=== PATIENT | male | born 1950 | race Caucasian/White ===

== ENCOUNTER 2022-01-03 08:21 | Inpatient (IN) ==
--- NOTE | 2021-12-17 14:07 | PAT Medication Instructions ---
Medication Instructions Date of Service December 17, 2021 Home Medications ascorbic acid (vitamin C) 1,000 mg tablet (Vitamin C) 1 g PO QAM cholecalciferol (vitamin D3) 25 mcg (1,000 unit) chewable tablet (Vitamin D3) 25 mcg PO QAM docusate sodium 100 mg tablet (Stool Softener) 100 mg PO BID ezetimibe 10 mg tablet 10 mg PO QPM finasteride 5 mg tablet 5 mg PO QPM garlic 300 mg PO QPM losartan 50 mg tablet 50 mg PO QAM meloxicam 15 mg tablet 15 mg PO QAM multivitamin 1 tab PO QAM pantoprazole 40 mg tablet,delayed release 40 mg PO QPM pravastatin 40 mg tablet 40 mg PO HS saw palmetto 80 mg capsule 160 mg PO QAM vitamin B complex 1 tab PO QPM zinc 1 tab PO QPM ASK your surgeon for instructions meloxicam 15 mg tablet 15 mg PO QAM STOP taking 2 weeks before surgery garlic 300 mg PO QPM saw palmetto 80 mg capsule 160 mg PO QAM vitamin B complex 1 tab PO QPM zinc 1 tab PO QPM DO NOT take the morning of surgery ascorbic acid (vitamin C) 1,000 mg tablet (Vitamin C) 1 g PO QAM cholecalciferol (vitamin D3) 25 mcg (1,000 unit) chewable tablet (Vitamin D3) 25 mcg PO QAM docusate sodium 100 mg tablet (Stool Softener) 100 mg PO BID losartan 50 mg tablet 50 mg PO QAM multivitamin 1 tab PO QAM Take evening before surgery docusate sodium 100 mg tablet (Stool Softener) 100 mg PO BID ezetimibe 10 mg tablet 10 mg PO QPM finasteride 5 mg tablet 5 mg PO QPM pantoprazole 40 mg tablet,delayed release 40 mg PO QPM pravastatin 40 mg tablet 40 mg PO HS Other Notes NOTHING TO EAT OR DRINK AFTER MIDNIGHT. If you have any questions please call us at [phone] or [phone] or [phone] or [phone]
--- NOTE | 2021-12-20 11:21 | Anesthesiology Consultation ---
Date of Service December 20, 2021 Assessment & Plan (1) Encounter for pre-operative examination: COVID screening: Per assessment on 12/17: Travel screen negative. Patient's girlfriend (in same household) had positive Covid home test 12/06/21. Patient had headache/cough which subsided 12/13. No current symptoms. Patient had Covid test done 12/20/21 ([place]) was positive. Pt can proceed as scheduled without additional preop Covid testing or additional Covid contact precautions per 90 days protocol. Chart Review Chart Review: Acceptable Risk for Surgery and Patient seen in Pre Admission Testing Teaching & Discussion Pre-Anesthesia Teaching/Discussion Notes: Instructed NPO after midnight before surgery,except medications with 15 cc of water. Medication instructions provided according to the PAT guidelines. History Surgery Operation Date: 01/03/22 10:05 Proposed Procedures p L3-S1 Decompression and Fusion Spinal Cord Monitoring - Otilio Baird, Height/Weight Height: 5 ft 10 in Weight: 97.1 kg Allergies Allergy/AdvReac Type Severity Reaction Status Date / Time Sulfa (Sulfonamide Allergy Intermediate Rash Verified 12/17/21 12:53 Antibiotics) Medications Home Medications Medication Instructions Recorded Confirmed Last Taken ascorbic acid (vitamin C) 1,000 mg 1 g PO QAM 12/17/21 12/17/21 Unknown tablet (Vitamin C) cholecalciferol (vitamin D3) 25 25 mcg PO QAM 12/17/21 12/17/21 Unknown mcg (1,000 unit) chewable tablet (Vitamin D3) docusate sodium 100 mg tablet 100 mg PO BID 12/17/21 12/17/21 Unknown (Stool Softener) ezetimibe 10 mg tablet 10 mg PO QPM 12/17/21 12/17/21 Unknown finasteride 5 mg tablet 5 mg PO QPM 12/17/21 12/17/21 Unknown garlic 300 mg PO QPM 12/17/21 12/17/21 Unknown losartan 50 mg tablet 50 mg PO QAM 12/17/21 12/17/21 Unknown meloxicam 15 mg tablet 15 mg PO QAM 12/17/21 12/17/21 Unknown multivitamin 1 tab PO QAM 12/17/21 12/17/21 Unknown pantoprazole 40 mg tablet,delayed 40 mg PO QPM 12/17/21 12/17/21 Unknown release pravastatin 40 mg tablet 40 mg PO HS 12/17/21 12/17/21 Unknown saw palmetto 80 mg capsule 160 mg PO QAM 12/17/21 12/17/21 Unknown vitamin B complex 1 tab PO QPM 12/17/21 12/17/21 Unknown zinc 1 tab PO QPM 12/17/21 12/17/21 Unknown Past Medical History Medical History BPH (benign prostatic hyperplasia) GERD (gastroesophageal reflux disease) History of COVID-19 Hx of malignant skin melanoma s/p excision Hyperlipidemia Hypertension Exercise / Class Metabolic Activity II 4-5 Yardwork/Stairs/Walk up hill (one FS (no CP, no SOB)) Past Family History Family History Other No family history of adverse response to anesthesia Past Surgical History Surgical History Hx of cataract extraction B/L Hx of colonoscopy Hx of melanoma excision back Past Anesthesia History No Hx of Anesthesia Complications and No Family Hx of Anesthesia Complications History of PONV No Hx of PONV and No Hx of Motion Sickness Social History Smoking Status: Never smoker Do You Dip or Chew Tobacco: No Hx Alcohol Use: Yes Alcohol type: hard liquor alcohol intake frequency: 3 or more drinks per day (2-3 vodka/tonic per night) Hx Substance Use: No substance use type: does not use Review of Systems Patient denies chest pain, shortness of breath, dyspnea on exertion, fever, chills, cough, wheezing, palpitations. Physical Exam Vital Signs VITALS BP 147/89 P 67 TEMP 98.2 SP02 97%RA RESP 16 PHYSICAL Full cervical extension range of motion. Full TMJ range of motion. TMD 3 finger breaths Mallampati Score 1 Dentition: intact, + crown Lungs: clear throughout to auscultation Cardiac: regular rate and rhythm, no murmurs noted Spine: normal Carotid arteries: negative bruit Extremities: no edema Lab Results Anesthesia Preop Results Results Anesthesia Widget: WBC 5.69 K/ul (4.8-10.8) 12/20/21 Hgb 12.8 g/dl (14.0-18.0) L 12/20/21 Hct 37.0 % (40.1-51.0) L 12/20/21 Plt 207 K/uL (130-400) 12/20/21 Na 139 mmol/L (136-145) 12/20/21 K 4.8 mmol/L (3.5-5.1) 12/20/21 Cl 105 mmol/L (98-107) 12/20/21 CO2 27 mmol/L (21-32) 12/20/21 BUN 20 mg/dl (6-23) 12/20/21 Creat 1.21 mg/dl (0.6-1.4) 12/20/21 Glucose Level 104 mg/dl (70-99(Fasting)) H 12/20/21 PT 10.7 Seconds (9.0-12.0) 12/20/21 PTT 25.9 Seconds (21.0-31.0) 12/20/21 INR 1.0 (0.9-1.1) 12/20/21 Urine Color Yellow 12/20/21 Urine Appearance Clear (Clear) 12/20/21 Urine pH 6.0 (4.5-7.5) 12/20/21 Urine Specific [place] 1.008 (1.000-1.030) 12/20/21 Urine Protein Negative (Negative) 12/20/21 Urine Glucose (UA) Negative (Negative) 12/20/21 Urine Ketones Negative (Negative) 12/20/21 Urine Blood Negative (Negative) 12/20/21 Urine Nitrite Negative (Negative) 12/20/21 Urine Bilirubin Negative (Negative) 12/20/21 Urine Urobilinogen Negative (Negative) 12/20/21 Urine Leukocyte Esterase Negative (Negative) 12/20/21 Blood Type A Positive 12/20/21 Antibody Screen NEGATIVE 12/20/21 Testing Electrocardiogram Date: 12/20/21 Findings: + NSR @ (62) Chest X-Ray Date: 11/26/21 Findings: + NAD
[~2022-01-03 08:21] MED LIST: ACETAMINOPHEN 500 MG TAB PO SCH; ALBUMIN HUMAN 5% 12.5 GM/250 ML VIAL IV ONE; GABAPENTIN 300 MG CAP PO SCH; LR 15ML/HR IV SCH; ceFAZolin 2000MG 2,000 MG/15 ML SYR IV SCH
[2022-01-03] MEDS ORDERED: MEPERIDINE HCL 25 MG/ML CARP/VIAL IV PRN (08:54)
[2022-01-03] MEDS ORDERED: ONDANSETRON INJ 2 MG/ML 2 ML VIAL IV PRN ×2 (08:54→15:26)
[2022-01-03] MEDS ORDERED: fentaNYL citrate 100 MCG/2 ML VIAL IV PRN (08:54)
[2022-01-03] MEDS ORDERED: HYDROmorphone INJ 1 MG/ML SYRINGE IV PRN ×2 (08:54→15:26)
[2022-01-03] MEDS ORDERED: ATROPINE SULFATE 0.1 MG/ML 10ML SYR IV PRN (08:54)
[2022-01-03] MEDS ORDERED: LABETALOL HCL IV 5 MG/ML 20ML IV PRN (08:54)
[2022-01-03] MEDS ORDERED: ePHEDrine sulfate 50 MG/ML AMP IV PRN (08:54)
[2022-01-03] MEDS ORDERED: PHENYLEPHRINE 100MCG/ML 5ML SYR IV PRN (08:54)
--- NOTE | 2022-01-03 09:31 | History & Physical Bridge Note ---
Date of Service January 03, 2022 History & Physical Bridge Note I have examined the patient, reviewed the History & Physical and in the interval since the performance of the History & Physical I have noted the following changes of clinical significance: no changes noted
--- NOTE | 2022-01-03 09:31 | History & Physical Report ---
Date of Service January 03, 2022 Assessment & Plan (1) Neurogenic claudication due to lumbar spinal stenosis: Plan: L3-S1 decompression and fusion History of Present Illness Chief Complaint: Back and bilateral leg pain Primary Care Provider: Matthew Walker This is a 71-year-old male presents with chronic persistent back and bilateral leg pain. After failing extensive course of nonoperative care is here for surgical invention. Allergies Allergy/AdvReac Type Severity Reaction Status Date / Time Sulfa (Sulfonamide Allergy Intermediate Rash Verified 01/03/22 09:01 Antibiotics) Home Medications Medication Instructions Recorded Confirmed Type ascorbic acid (vitamin C) 1,000 mg 1 g PO QAM 12/17/21 01/03/22 History tablet (Vitamin C) cholecalciferol (vitamin D3) 25 25 mcg PO QAM 12/17/21 01/03/22 History mcg (1,000 unit) chewable tablet (Vitamin D3) docusate sodium 100 mg tablet 100 mg PO BID 12/17/21 01/03/22 History (Stool Softener) ezetimibe 10 mg tablet (Zetia) 10 mg PO QPM 12/17/21 01/03/22 History finasteride 5 mg tablet 5 mg PO QPM 12/17/21 01/03/22 History garlic 300 mg PO QPM 12/17/21 01/03/22 History losartan 50 mg tablet 50 mg PO QAM 12/17/21 01/03/22 History meloxicam 15 mg tablet 15 mg PO QAM 12/17/21 01/03/22 History multivitamin 1 tab PO QAM 12/17/21 01/03/22 History pantoprazole 40 mg tablet,delayed 40 mg PO QPM 12/17/21 01/03/22 History release pravastatin 40 mg tablet 40 mg PO HS 12/17/21 01/03/22 History saw palmetto 80 mg capsule 160 mg PO QAM 12/17/21 01/03/22 History vitamin B complex 1 tab PO QPM 12/17/21 01/03/22 History zinc 1 tab PO QPM 12/17/21 01/03/22 History Past Med/Surg History Medical History (Updated 01/03/22 @ 09:31 by Otilio Baird DO) Anemia BPH (benign prostatic hyperplasia) GERD (gastroesophageal reflux disease) History of COVID-19 Hx of malignant skin melanoma s/p excision Hyperlipidemia Hypertension Surgical History Hx of cataract extraction B/L Hx of colonoscopy Hx of melanoma excision back Family History Other No family history of adverse response to anesthesia Social History Smoking Status: Never smoker Second Hand Exposure: No; Do You Dip or Chew Tobacco: No; Tobacco Cessation Education Requested by Patient: No Hx Alcohol Use: Yes Alcohol type: hard liquor Hx Substance Use: No Preferred Language: Luxembourgish Communication Ability: Effective Shearing Shed Hand Required: No Beliefs That Will Affect Care: None Current Living Situation: Significant Other Other Information That Helps Us Care for You: No Feels Safe at Home: Yes Safety Concerns: Feels Safe At This Time Assistive Devices: None Physical Exam Physical Exam: Patient is alert and oriented Heart regular rhythm Lungs clear Results & Data Results & Data ([facility]) Vital Signs (Past 12 Hours) Vital Signs Temp Pulse Resp BP Pulse Ox O2 Del Method 01/03/22 08:59 36.6 C 72 18 170/87 H 97 Room Air
[2022-01-03] MEDS ORDERED: BUPIVACAINE/EPINEPHRINE 0.25% 1:200,000 30 ML VIAL ONE (09:48)
[2022-01-03] MEDS ORDERED: ceFAZolin 330 MG/ML 1 GM VIAL ONE (09:48)
[2022-01-03] MEDS ORDERED: HYDROmorphone INJ 2 MG/ML SYR/VIAL ONE ×2 (09:52→12:55)
[2022-01-03] MEDS ORDERED: DEXAMETHASONE SOD INJ 4 MG/ML VIAL ONE (09:52)
[2022-01-03] MEDS ORDERED: LIDOCAINE 2% MPF LOCAL 5 ML VIAL INFIL ONE (09:52)
[2022-01-03] MEDS ORDERED: PROPOFOL IV EMULSION 10 MG/ML 20 ML VIAL IV ONE (09:52)
[2022-01-03] MEDS ORDERED: NEOSTIGMINE METHYLSULFATE 1 MG/ML 10ML VIAL ONE (09:52)
[2022-01-03] MEDS ORDERED: MIDAZOLAM HCL 1 MG/ML 2ML VIAL ONE (09:52)
[2022-01-03] MEDS ORDERED: GLYCOPYRROLATE 0.2 MG/ML VIAL ONE (09:52)
[2022-01-03] MEDS ORDERED: ROCURONIUM BROMIDE 10 MG/ML 5 ML VIAL IV ONE ×6 (09:52→10:42)
[2022-01-03] MEDS ORDERED: ONDANSETRON INJ 2 MG/ML 2 ML VIAL ONE (09:52)
[2022-01-03] MEDS ORDERED: FLOSEAL HEMOSTATIC MATRIX 10ML TOP ONE (10:47)
--- NOTE | 2022-01-03 13:17 | Operative Report ---
Post Operative Report Pre & Post Diagnosis Operation Date: 01/03/22 10:05 Pre-Op Diagnosis: Neurogenic Claudication due to Lumbar Spinal Stenosis Lumbar spondylolisthesis Post-Op Diagnosis: Same I identified the patient and participated in the time-out.: Yes Procedure Operation Date: 01/03/22 10:05 Actual Procedures #1 lumbar decompression with bilateral medial facetectomies and foraminotomies L2-L3, L3-L4, L4-5 and L5-S1. #2 posterior spinal fusion L3-L4, L4-5 and L5-S1. #3 placement posterior segmental instrumentation L3-S1. #4 interbody fusion L3-L4, L4-5 and L5-S1. #5 placement of Spira 13 x 26 mm cage at L3-L4, 13 x 26 mm cage at L4-L5 and a 14 x 26 mm cage L5-S1. #6 placement locally harvested morselized autograft in the posterior gutters. #7 placement of I factor combined with V toss in the interbody space and posterior gutters. Surgeon Otilio Baird, DO [employer] Jefe Martin Estimated Blood Loss 1,000 Findings See Below Patient is 5 foot 10 weighing over 96 kg with a BMI in excess of 38. This combined with an EBL of greater than 1000 cc created significant technical difficulty and at least 50% increased operative time. Specimens None Indications This is a 71-year-old male who presents above-mentioned diagnosis after failing course of nonoperative care is here for the above-mentioned procedure. Description of Procedure Patient was met with identified informed consent obtained. Patient was then taken to the operative suite underwent a patient placed in a prone position the [place] table top Gustavo frame. All bony prominences well-padded eyes inspected to ensure no external pressure response. This point lumbar spine was prepped and draped in a sterile fashion. Sharp dissection with the assistance of Bovie cautery was performed down to and exposing the lamina and transverse processes of L2 L3-L4-L5 and the sacral ala bilaterally. From caudal to cephalad fashion complete laminectomy of L5 L4 L3 and partial laminectomy of L2 was performed including bilateral medial facetectomies and foraminotomies addressing severe spinal stenosis. Obvious bilateral pars defect noted at L5. After complete decompression pedicle screws were placed in L3-L4-L5 and S1 levels bilaterally with assistance of fluoroscopy and properly sized saul contoured and placed. By way of a transforaminal portion left complete discectomy of L5-S1 was performed endplates curetted to subcortical bleeding bone and a 14 x 26 mm spiral cage with I factor tapped in position. Then proceeded to L4-L5 and again by way of a transforaminal approach on the left complete discectomy performed endplates curetted to subcortically bone and a 13 x 26 mm spiral cage with I factor tapped in position. Lastly proceeded L3-L4 and again by way of a transforaminal epidural left complete discectomy was performed endplates curetted to subcorti lizabeth bone and a 13 x 26 mm spiral cage filled with I factor tapped in position. The rods were then compressed locked in final position bilaterally. The transverse processes of L3-L4-L5 and sacral ala burred to subcortically bone. I factor combined with V toss and locally harvested morselized autograft was placed in the posterior gutters. 15 round FERMIN drain inserted. The incision was then closed with 1 Vicryl the fascia 2-0 Vicryl subcutaneously and 4 Monocryl for final skin closure. Steri-Strip sterile dressings placed. Patient will continue PACU stable condition. Please note spinal cord monitoring was last at the procedure no changes noted. Lastly Jefe Martin was present at the entire surgery and while the patient positioning complex portions of the surgery and fascial closure. I attest to the content of the Intraoperative Record and any orders documented therein. Any exceptions are noted below.
--- NOTE | 2022-01-03 14:12 | Fluoroscopy Report ---
FL lumbar spine 2-3V CLINICAL HISTORY: L3-S1 DFI COMPARISON STUDY: None. FLUOROSCOPY TIME: 39 seconds. FLUOROSCOPIC IMAGES: 2 FINDINGS: Fluoroscopy was provided during L3-L4, L4-L5 and L5-S1 discectomies with interbody spacer p lacement. Posterior decompression is noted with bilateral pedicle screws at the L3, L4, L5 and S1 lev els with interconnecting rods. Hardware is intact. No unexpected radiopaque foreign bodies. IMPRESSION: Fluoroscopy provided during L3-S1 discectomies, posterior decompression and pedicle scre w fusion. ACT 112: Negative or not required by law. Electronically signed by: Elijah Reyes M.D. 01/03/2022 2:10 PM
--- NOTE | 2022-01-03 14:51 | Anesthesiology Progress Note ---
Date of Service January 03, 2022 Anesthesia Post Procedure Vital Signs Vital Signs: Temp Pulse Resp BP Pulse Ox O2 Del Method O2 Flow Rate 01/03/22 14:45 82 14 120/74 98 Oxymask 3 01/03/22 14:35 36.5 C 82 14 124/75 98 Oxymask 3 01/03/22 14:25 79 14 117/67 98 Oxymask 3 01/03/22 14:15 78 14 123/67 98 Oxymask 3 01/03/22 14:05 77 14 122/68 98 Oxymask 3 01/03/22 13:55 78 14 116/67 99 Oxymask 5 01/03/22 13:45 78 14 108/69 99 Oxymask 5 01/03/22 13:36 36.2 C L 79 10 L 136/71 99 Oxymask 10 01/03/22 08:59 36.6 C 72 18 170/87 H 97 Room Air Pain Intensity Lower Back: Pain Intensity: 0 Transfer of Care Handoff Completed per policy Notes Mental Status: alert / awake / arousable Patient Amnestic to Procedure: Yes Nausea / Vomiting: adequately controlled Pain: adequately controlled Airway Patency, RR, SpO2: stable & adequate BP & HR: stable & adequate Hydration State: stable & adequate Anesthetic Complications: no major complications apparent and Pt Satisfied with anesthetic care
[2022-01-03] MEDS ORDERED: LORazepam 0.5 MG TAB PO PRN (15:26)
[2022-01-03] MEDS ORDERED: SOD PHOSPHATE/SOD BIPHOSPHATE ENEMA 132 ML BTL PR PRN (15:26)
[2022-01-03] MEDS ORDERED: ACETAMINOPHEN 1,000 MG/100 ML VIAL IV PRN (15:26)
[2022-01-03] MEDS ORDERED: bisacodyL 10 MG SUPP PR PRN (15:26)
[2022-01-03] MEDS ORDERED: NALOXONE HCL 0.4 MG/1 ML VIAL/CARP IV PRN (15:26)
[2022-01-03] MEDS ORDERED: METOCLOPRAMIDE HCL INJ 5 MG/ML 2 ML VIAL IV PRN (15:26)
[2022-01-03] MEDS ORDERED: ALUMINUM/MAGNESIUM SUSP 30 ML UDC PO PRN (15:26)
[2022-01-03] MEDS ORDERED: HYDROmorphone INJ 0.5 MG/0.5 ML SYR IV PRN (15:26)
[2022-01-03] MEDS ORDERED: LORazepam 0.5 MG in SYRINGE 0 ML IV PRN (15:26)
[2022-01-03] MEDS ORDERED: MAGNESIUM HYDROXIDE SUSP 30 ML UDC PO PRN (15:26)
[2022-01-03] MEDS ORDERED: PROMETHAZINE HCL 12.5 MG in SODIUM CHLORIDE 0.9% 50 ML IV PRN (15:26)
[2022-01-03] MEDS ORDERED: ONDANSETRON 4 MG OD TAB PO PRN (15:26)
[2022-01-03] MEDS ORDERED: ACETAMINOPHEN 500 MG TAB PO PRN (15:26)
[2022-01-03] MEDS ORDERED: FAMOTIDINE 20 MG TAB PO PRN (15:26)
[2022-01-03] MEDS ORDERED: diphenhydrAMINE Capsule 25 MG CAP PO PRN (15:26)
[2022-01-03] MEDS ORDERED: oxyCODONE HCL IR 5 MG TAB (IMMEDIATE RELEASE) PO PRN (15:26)
[2022-01-03] MEDS ORDERED: hydrOXYzine HCl 25 MG TAB PO PRN (15:26)
[2022-01-03] MEDS ORDERED: traMADol HCL 50 MG TABLET PO PRN (15:26)
[2022-01-03] MEDS: LACTATED RINGER'S 1,000 ML IV SCH ×2 (15:44→21:55)
[2022-01-03] MEDS ORDERED: SODIUM CHLORIDE 0.9% 250 ML IV PRN (15:47)
[2022-01-03 16:06] LABS: Hemoglobin 10.7 g/dl (14.0-18.0)
--- NOTE | 2022-01-03 16:22 | Consultation ---
Date of Consultation January 03, 2022 Assessment & Plan (1) Neurogenic claudication due to lumbar spinal stenosis: (2) S/P spinal surgery: Post op day# 0 S/P L3-S1 decompression and fusion by Dr Baird EBL#1000ml -pain management per ortho -wound management per ortho -PT/OT as appropriate -DVT prophylaxis per ortho -incentive spirometry -monitor H&H for acute blood loss anemia; pre-op Hgb: 12.8 (3) Anemia: Acute blood loss anemia, post-op Pre-op Hgb: 12.8 Had EBL#1000ml -Repeat H&H: Hgb: 10.7 -Monitor H&H, Type and cross PRBC's and hold (4) Hypertension: -Hold losartan and reassess tomorrow (5) Hyperlipidemia: -Continue pravastatin, ezetimibe (6) BPH (benign prostatic hyperplasia): -Continue finasteride (7) GERD (gastroesophageal reflux disease): -Continue PPI DVT Prophylaxis -SCDs Disposition per primary service Follows with Matthew Walker PA-C for routine care Pt was seen and care coordinated with Dr Gabriel. See addendum Thank you for this consultation. We will follow the patient with you during their hospital stay. You can reach a [facility] via [facility] Supervising Physician Co-Signing Physician Notes Pt seen and examined by me, care coordinated w/ Mariam Harden PA-C, pls refer to her note above for further detail. Pt is 71 y/o M w/ HTN, dyslipidemia, GERD, BPH, melanoma to back in 2007 s/p surg. removal, seen in medical consultation s/p L3-S1 decompression and fusion today by Dr Baird. Post op pt is feeling well, just little "groggy", reports pain controlled. Denies nausea, vomiting, CP, SOB. Has Espinosa catheter in place, draining clear yellow urine. Lungs are clear to auscultation, heart sounds regular. Abdomen soft, nontender nondistended, positive bowel sounds, obese. Patient moves lower extremities. Teds and SCDs applied. Surgical dressings on the back present. Pt w/ blood loss cca 1L per report. H&H repeat obtained - 10.7. BP 124/75- no need for blood transfusion at this time. Will continue to closely monitor. [place]. MULLER History of Present Illness Requesting Physician: Dr Baird Reason for Consultation: Post op medical management Attending Physician: Otilio Baird DO History of Present Illness Patient is 71 y/o M with PMH HTN, dyslipidemia, GERD, BPH, melanoma to back in 2007 seen in medical consultation s/p L3-S1 decompression and fusion today by Dr Baird. Post op reports pain controlled. Denies nausea, vomiting, CP, SOB. Has Espinosa catheter in place. Denies fever/chills, diaphoresis, MARTE, dizziness, vision changes, neck pain, palpitations, cough, sore throat, otalgia, rhinorrhea, abdominal pain, paresthesias, weakness, extremity edema, rashes, urinary symptoms. Allergies Allergy/AdvReac Type Severity Reaction Status Date / Time Sulfa (Sulfonamide Allergy Intermediate Rash Verified 01/03/22 09:01 Antibiotics) Home Medications Medication Instructions Recorded Confirmed Type ascorbic acid (vitamin C) 1,000 mg 1 g PO QAM 12/17/21 01/03/22 History tablet (Vitamin C) cholecalciferol (vitamin D3) 25 25 mcg PO QAM 12/17/21 01/03/22 History mcg (1,000 unit) chewable tablet (Vitamin D3) docusate sodium 100 mg tablet 100 mg PO BID 12/17/21 01/03/22 History (Stool Softener) ezetimibe 10 mg tablet (Zetia) 10 mg PO QPM 12/17/21 01/03/22 History finasteride 5 mg tablet 5 mg PO QPM 12/17/21 01/03/22 History garlic 300 mg PO QPM 12/17/21 01/03/22 History losartan 50 mg tablet 50 mg PO QAM 12/17/21 01/03/22 History meloxicam 15 mg tablet 15 mg PO QAM 12/17/21 01/03/22 History multivitamin 1 tab PO QAM 12/17/21 01/03/22 History pantoprazole 40 mg tablet,delayed 40 mg PO QPM 12/17/21 01/03/22 History release pravastatin 40 mg tablet 40 mg PO HS 12/17/21 01/03/22 History saw palmetto 80 mg capsule 160 mg PO QAM 12/17/21 01/03/22 History vitamin B complex 1 tab PO QPM 12/17/21 01/03/22 History zinc 1 tab PO QPM 12/17/21 01/03/22 History Patient History Medical History (Updated 01/03/22 @ 16:24 by Oliva Harden PA-C) Anemia BPH (benign prostatic hyperplasia) GERD (gastroesophageal reflux disease) History of COVID-19 Hx of malignant skin melanoma s/p excision Hyperlipidemia Hypertension Surgical History (Updated 01/03/22 @ 16:24 by Oliva Harden PA-C) Hx of cataract extraction B/L Hx of colonoscopy Hx of melanoma excision back Family History (Updated 01/03/22 @ 16:22 by Oliva Harden PA-C) Father Diabetes Lung cancer Mother Breast cancer Other No family history of adverse response to anesthesia Social History Smoking Status: Never smoker Second Hand Exposure: No; Do You Dip or Chew Tobacco: No; Tobacco Cessation Education Requested by Patient: No Hx Alcohol Use: Yes Alcohol type: hard liquor Hx Substance Use: No Preferred Language: Telugu Communication Ability: Effective Solution Strategist Required: No Beliefs That Will Affect Care: None Current Living Situation: Significant Other Other Information That Helps Us Care for You: No Feels Safe at Home: Yes Safety Concerns: Feels Safe At This Time Assistive Devices: None Review of Systems Review of Systems: All systems reviewed & are unremarkable except as noted in HPI & below Physical Exam Physical Exam: General: no distress, WDWN Head: normocephalic, atraumatic Eyes: conjunctiva non-injected, anicteric ENT: normal inspection external ears, nose, mucous membranes moist Neck: supple, trachea midline Lungs: clear, no respiratory distress, no wheezing/rhonchi/rales CV: RRR, no murmur, no pretibial edema Abd: normal BS, soft, non-tender Ext: no cyanosis, no calf tenderness; pedal pushes and pulls intact bilaterally, distal pulses intact, sensation to light touch intact Neuro: A&O x 3, no focal deficits noted, normal affect Skin: warm, dry Results & Data ([facility]) Vital Signs (Past 12 Hours) Vital Signs Temp Pulse Pulse Resp BP Pulse Ox O2 Del Method 01/03/22 15:45 37.4 C 85 14 109/72 93 Room Air 10/14/22 15:24 36.7 C 95 H 16 110/77 94 Room Air 01/03/22 15:00 81 14 126/76 97 Nasal Cannula 01/03/22 14:45 82 14 120/74 98 Nasal Cannula 01/03/22 14:35 36.5 C 82 14 124/75 98 Oxymask 01/03/22 14:25 79 14 117/67 98 Oxymask 01/03/22 14:15 78 14 123/67 98 Oxymask 01/03/22 14:05 77 14 122/68 98 Oxymask 01/03/22 13:55 78 14 116/67 99 Oxymask 01/03/22 13:45 78 14 108/69 99 Oxymask 01/03/22 13:36 36.2 C L 79 10 L 136/71 99 Oxymask 01/03/22 08:59 36.6 C 72 18 170/87 H 97 Room Air O2 Flow Rate 01/03/22 15:45 01/03/22 15:24 01/03/22 15:00 3 01/03/22 14:45 3 01/03/22 14:35 3 01/03/22 14:25 3 01/03/22 14:15 3 01/03/22 14:05 3 01/03/22 13:55 5 01/03/22 13:45 5 01/03/22 13:36 10 01/03/22 08:59 Laboratory Results Short CBC 01/03/22 Range/Units 15:58 Hgb 10.7 L (14.0-18.0) g/dl Hct 31.0 L (40.1-51.0) % Diagnostic Findings Lumbar Spine X-Ray 01/03/22 10:05 [place] lumbar spine 2-3V CLINICAL HISTORY: L3-S1 DFI COMPARISON STUDY: None. FLUOROSCOPY TIME: 39 seconds. FLUOROSCOPIC IMAGES: 2 FINDINGS: Fluoroscopy was provided during L3-L4, L4-L5 and L5-S1 discectomies with interbody spacer placement. Posterior decompression is noted with bilateral pedicle screws at the L3, L4, L5 and S1 levels with interconnecting rods. Hardware is intact. No unexpected radiopaque foreign bodies. IMPRESSION: Fluoroscopy provided during L3-S1 discectomies, posterior decompression and pedicle screw fusion. ACT 112: Negative or not required by law. Electronically signed by: Elijah Reyes M.D. 01/03/2022 2:10 PM
[2022-01-03] MEDS: ceFAZolin 2000MG 2,000 MG/15 ML SYR IV SCH (18:13)
[2022-01-03] MEDS: DOCUSATE SODIUM/SENNA 50/8.6MG TAB PO SCH (19:54)
[2022-01-03] MEDS: EZETIMIBE 10 MG TABLET PO SCH (19:55)
[2022-01-03] MEDS: FINASTERIDE 5 MG TAB PO SCH (19:56)
[2022-01-03] MEDS: PRAVASTATIN SOD 40 MG TAB PO SCH (19:56)
[2022-01-03] MEDS: PANTOprazole 40 MG TAB PO SCH (19:56)
[2022-01-04] MEDS: ceFAZolin 2000MG 2,000 MG/15 ML SYR IV SCH (02:55)
[2022-01-04] MEDS: POLYETHYLENE (MIRALAX) 17 GM PACK PO SCH ×4 (05:52→20:31)
[2022-01-04 08:13] LABS: Basophils # (auto) 0.01 K/uL (0-0.2); Basophils % (auto) 0.1 %; Eosinophils # (auto) 0.01 K/uL (0-0.50); Eosinophils % (auto) 0.1 %; Hematocrit (blood only) 25.8 % (40.1-51.0); Hemoglobin 9.1 g/dl (14.0-18.0); Immature Granulocytes # (auto) 0.05 K/uL (0.00-0.02); Immature Granulocytes % (auto) 0.4 %; Lymphocytes # (auto) 2.29 K/uL (1.2-3.4); Lymphocytes % (auto) 18.9 %; Mean Corpuscular Hemoglobin 33.5 pg (25.0-34.0); Mean Corpuscular Hgb Conc 35.3 g/dL (32.0-36.0); Mean Corpuscular Volume 94.9 fL (80.0-100.0); Mean Platelet Volume 10.6 fL (9.4-12.4); Monocytes # (auto) 1.24 K/uL (0.24-0.82); Monocytes % (auto) 10.2 %; Neutrophils # (auto) 8.51 K/uL (1.4-6.5); Neutrophils % (auto) 70.3 %; Platelet Count 182 K/uL (130-400); RDW Coefficient of Variation 12.8 % (11.5-14.5); RDW Standard Deviation 44.1 fL (36.4-46.3); Red Blood Count 2.72 M/uL (4.63-6.08); White Blood Count 12.11 K/ul (4.8-10.8)
--- NOTE | 2022-01-04 08:15 | Orthopedic Progress Note ---
Date of Service January 04, 2022 Assessment & Plan (1) Neurogenic claudication due to lumbar spinal stenosis: Plan: At this time initiate physical therapy monitor FERMIN operatively discharge home in the next few days. Admission and Anticipated Discharge Date Admission Date: January 03, 2022 Subjective Back pain controlled leg pain improved Physical Exam Physical Exam: Patient is comfortable. Is constricted testing. Results & Data ([facility]) Vital Signs (Past 12 Hours) Vital Signs Temp Pulse Resp BP Pulse Ox O2 Del Method 01/04/22 07:15 37.4 C 80 14 145/63 H 93 Room Air 01/04/22 02:00 36.9 C 83 18 127/71 94 Room Air 01/03/22 22:04 37.2 C 90 20 137/67 95 Room Air
[2022-01-04 08:39] LABS: BUN Creatinine Ratio 14.5 (10-20); Calcium 9.3 mg/dl (8.5-10.1); Creatinine Clr Calc Pharmacy 69.6 ml/min; Est GFR (African American) 73.3 ml/min; Est GFR (Non-African American) 63.2 ml/min; Potassium 4.2 mmol/L (3.5-5.1)
[2022-01-04] MEDS ORDERED: LOSARTAN POTASSIUM 50 MG TAB PO SCH (09:00)
[2022-01-04] MEDS: MULTIVITAMIN TAB PO SCH (09:01)
[2022-01-04] MEDS: CHOLECALCIFEROL 1,000 UNITS 25 MCG TAB PO SCH (09:01)
[2022-01-04] MEDS: dexAMETHasone 6 MG in SYRINGE 0 ML IV SCH (09:01)
--- NOTE | 2022-01-04 11:11 | Hospitalist Progress Note ---
Date of Service January 04, 2022 Assessment & Plan (1) Neurogenic claudication due to lumbar spinal stenosis: (2) S/P spinal surgery: Plan: Post op day#1 S/P L3-S1 decompression and fusion by Dr Baird EBL#1000ml -pain management per ortho -wound management per ortho -PT/OT as appropriate -DVT prophylaxis per ortho -incentive spirometry -monitor H&H for acute blood loss anemia; pre-op Hgb: 12.8 (3) Anemia: Plan: Acute blood loss anemia, post-op Pre-op Hgb: 12.8 Had EBL#1000ml -Repeat H&H: Hgb: 9.1 -Monitor H&H, Type and cross PRBC's and hold (4) Hypertension: Plan: Losartan held post operatively. BP 145/73, will restart this now. (5) Hyperlipidemia: Plan: -Continue pravastatin, ezetimibe (6) BPH (benign prostatic hyperplasia): Plan: -Continue finasteride (7) GERD (gastroesophageal reflux disease): Plan: -Continue PPI DVT Prophylaxis -SCDs Disposition per primary service but cleared from a medical standpoint for discharge. Follows with Matthew Walker PA-C for routine care Thank you for this consultation. We will follow the patient with you during their hospital stay. You can reach a member of the [facility] Hospitalist Team 13/10 via [employer] Jacqueline Tamez DO [facility] and Anticipated Discharge Date Admission Date: January 03, 2022 Subjective 71-year-old man status post L3-S1 decompression and fusion by Dr. Baird on 01/03 He is ambulating with walker and doing well with this. Reports pain at his incision site which is expected. Has some chronic numbness in his feet which was present preoperatively. There are no changes with this. Overall doing well tolerating p.o. Review of Systems Review of Systems: All systems reviewed negative except as indicated above. Physical Exam Physical Exam: CONSTITUTIONAL: WNWD, vitals as above, generally well- appearing, NAD EYES: normal conjunctivae, no scleral icterus ENT: external ear and nose normal, MMM NECK: trachea midline RESPIRATORY: clear to auscultation bilaterally, no crackles, rales or wheezes, normal respiratory effort CARDIOVASCULAR: regular rate and rhythm, S1 and 2 heard without murmurs, gallops or rubs, no JVD, no peripheral edema CHEST: inspection of chest was normal GASTROINTESTINAL: soft, nontender, ND, no guarding MUSCULOSKELETAL: strength 5/5 throughout, head is normocephalic and atraumatic, neck supple, normal palpation of chest wall without tenderness SKIN: warm and dry NEUROLOGIC: CN 2-12 grossly intact, no sensory deficit, normal cognition, normal speech, no tremor PSYCHIATRIC: alert cooperative and oriented to person, place and time. Euthymic mood, makes good eye contact, language grossly intact, recent and remote memory grossly intact. Results & Data Results & Data ([facility]) Vital Signs (Past 12 Hours) Vital Signs Temp Pulse Resp BP Pulse Ox O2 Del Method 01/04/22 07:15 37.4 C 80 14 145/63 H 93 Room Air 01/04/22 02:00 36.9 C 83 18 127/71 94 Room Air Laboratory Results Short CBC 01/03/22 01/04/22 Range/Units 15:58 07:58 WBC 12.11 H (4.8-10.8) K/ul Hgb 10.7 L 9.1 L (14.0-18.0) g/dl Hct 31.0 L 25.8 L (40.1-51.0) % Plt Count 182 (130-400) K/uL BMP 01/04/22 07:58 Sodium 137 Potassium 4.2 Chloride 103 Carbon Dioxide 27 BUN 17 Creatinine 1.17 Glucose 121 H Calcium 9.3 Medications Administered Current Inpatient Medications Acetaminophen (Acetaminophen 500 Mg Tab) 1,000 mg PO Q8H PRN PRN Reason: MILD Pain Scale 1,2,3 & Pre PT Stop: 02/02/22 15:25 Al Hydrox/Mg Hydrox/Simethicone (Aluminum/Magnesium Susp 30 Ml Udc) 30 ml PO Q6H PRN PRN Reason: Dyspepsia Stop: 02/02/22 15:25 Bisacodyl (Bisacodyl 10 Mg Supp) 10 mg [place] DAILY PRN PRN Reason: Constipation Stop: 02/02/22 15:25 Diphenhydramine HCl (Diphenhydramine Capsule 25 Mg Cap) 25 mg PO Q6H PRN PRN Reason: Allergic Rhinitis/Insomnia Stop: 02/02/22 15:25 Ezetimibe (Ezetimibe 10 Mg Tablet) 10 mg PO QPM WADE Stop: 02/02/22 20:59 Last Admin: 01/03/22 19:55 Dose: 10 mg Famotidine (Famotidine 20 Mg Tab) 20 mg PO Q12H PRN PRN Reason: Dyspepsia Stop: 02/02/22 15:25 Finasteride (Finasteride 5 Mg Tab) 5 mg PO QPM WADE Stop: 02/02/22 20:59 Last Admin: 01/03/22 19:56 Dose: 5 mg Hydromorphone HCl (Hydromorphone Inj 0.5 Mg/0.5 Ml Syr) 0.5 mg IV Q3H PRN PRN Reason: MODERATE Pain (Scale 4,5,6) & Pre PT Stop: 01/17/22 15:25 Hydromorphone HCl (Hydromorphone Inj 1 Mg/Ml Syringe) 1 mg IV Q3H PRN PRN Reason: SEVERE Pain (Scale 7,8,9,10) Stop: 01/17/22 15:25 Hydroxyzine HCl (Hydroxyzine Hcl 25 Mg Tab) 25 mg PO Q8H PRN PRN Reason: Anxiety Stop: 02/02/22 15:25 Promethazine HCl 12.5 mg/ (Sodium Chloride) 50.5 mls @ 202 mls/hr IV Q6H PRN PRN Reason: Nausea &/or Vomiting Stop: 02/02/22 15:25 Acetaminophen (Ofirmev) 1,000 mg in 100 mls @ 400 mls/hr IV Q8H PRN PRN Reason: Pain Rating 1-3 & Pre PT Stop: 01/04/22 15:26 Lorazepam 0.5 mg/ Syringe 0.5 mls @ 2 mls/min IV Q8H PRN PRN Reason: Sedation/Anxiety Stop: 02/02/22 15:25 Dexamethasone 6 mg/ Syringe 1.5 mls @ 1 mls/min IV DAILY [facility] Stop: 01/06/22 09:02 Last Admin: 01/04/22 09:01 Dose: 1 mls/min Lorazepam (Lorazepam 0.5 Mg Tab) 0.5 mg PO Q8H PRN PRN Reason: Sedation/Anxiety Stop: 02/02/22 15:25 Losartan Potassium (Losartan Potassium 50 Mg Tab) 50 mg PO QAM [facility] Stop: 02/03/22 08:59 Magnesium Hydroxide (Magnesium Hydroxide Susp 30 Ml Udc) 30 ml PO Q24H PRN PRN Reason: Constipation Stop: 02/02/22 15:25 Metoclopramide HCl (Metoclopramide Hcl Inj 5 Mg/Ml 2 Ml Vial) 10 mg IV Q6H PRN PRN Reason: Nausea &/or Vomiting Stop: 02/02/22 15:25 Multivitamins (Multivitamin Tab) 1 tab PO QAM WADE Stop: 02/03/22 08:59 Last Admin: 01/04/22 09:01 Dose: 1 tab Naloxone HCl (Naloxone Hcl 0.4 Mg/1 Ml Vial/Carp) 0.1 mg IV Q5M PRN PRN Reason: Oversedation/Resp depression Stop: 02/02/22 15:25 Ondansetron HCl (Ondansetron Inj 2 Mg/Ml 2 Ml Vial) 4 mg IV Q6H PRN PRN Reason: Nausea &/or Vomiting Stop: 02/02/22 15:25 Ondansetron HCl (Ondansetron 4 Mg Od Tab) 4 mg PO Q6H PRN PRN Reason: Nausea Stop: 02/02/22 15:25 Oxycodone HCl (Oxycodone Hcl Ir 5 Mg Tab (Immediate Release)) 5 - 10 mg PO Q4H PRN PRN Reason: Pain & Pre PT Stop: 01/17/22 15:25 Pantoprazole Sodium (Pantoprazole 40 Mg Tab) 40 mg PO QPM WADE Stop: 02/02/22 20:59 Last Admin: 01/03/22 19:56 Dose: 40 mg Polyethylene Glycol (Polyethylene (Miralax) 17 Gm Pack) 17 gm PO Q6 WADE Stop: 02/03/22 05:59 Last Admin: 01/04/22 12:13 Dose: 17 gm Pravastatin Sodium (Pravastatin Sod 40 Mg Tab) 40 mg PO HS WADE Stop: 02/02/22 20:59 Last Admin: 01/03/22 19:56 Dose: 40 mg Senna/Docusate Sodium (Docusate Sodium/Senna 50/8.6mg Tab) 2 tab PO HS WADE Stop: 02/02/22 20:59 Last Admin: 01/03/22 19:54 Dose: 2 tab Sodium Biphosphate/Sodium Phosphate (Sod Phosphate/Sod Biphosphate Enema 132 Ml Btl) 132 ml [place] ONE PRN PRN Reason: Constipation Stop: 02/02/22 15:25 Tramadol HCl (Tramadol Hcl 50 Mg Tablet) 50 - 100 mg PO Q4H PRN PRN Reason: Moderate-Severe pain & Pre PT Stop: 02/02/22 15:25 Vitamin D (Cholecalciferol 1,000 Units 25 Mcg Tab) 1,[facility] Stop: 02/03/22 08:59 Last Admin: 01/04/22 09:01 Dose: 1,000 units
[2022-01-04] MEDS: LOSARTAN POTASSIUM 50 MG TAB PO SCH (13:32)
[2022-01-04] MEDS: DOCUSATE SODIUM/SENNA 50/8.6MG TAB PO SCH (19:19)
[2022-01-04] MEDS: EZETIMIBE 10 MG TABLET PO SCH (20:30)
[2022-01-04] MEDS: PANTOprazole 40 MG TAB PO SCH (20:30)
[2022-01-04] MEDS: FINASTERIDE 5 MG TAB PO SCH (20:30)
[2022-01-04] MEDS: PRAVASTATIN SOD 40 MG TAB PO SCH (20:30)
[2022-01-05] MEDS: POLYETHYLENE (MIRALAX) 17 GM PACK PO SCH (05:54)
[2022-01-05] MEDS: dexAMETHasone 6 MG in SYRINGE 0 ML IV SCH (08:05)
[2022-01-05] MEDS: LOSARTAN POTASSIUM 50 MG TAB PO SCH (08:05)
[2022-01-05] MEDS: MULTIVITAMIN TAB PO SCH (08:05)
[2022-01-05] MEDS: CHOLECALCIFEROL 1,000 UNITS 25 MCG TAB PO SCH (08:05)
--- NOTE | 2022-01-05 08:15 | Discharge Summary ---
Date of Service January 05, 2022 Admission HPI Per Admitting Provider This is a 71-year-old male presents with chronic persistent back and bilateral leg pain. After failing extensive course of nonoperative care is here for surgical invention. Admission Exam (Per Admitting) Constitutional average body habitus Eyes normal visual hensley by confrontation ENMT external ear and nose normal, oropharynx normal Neck normal visual inspection Respiratory normal respiratory effort Cardiovascular Extremities: normal capillary refill Gastrointestinal (Abdomen) Inspection/Auscultation: abdomen normal to inspection Musculoskeletal Extremities: extremities normal to inspection Skin normal turgor Neurologic normal touch/pain/proprioception and moves all extremities Psychiatric A+Ox3, euthymic affect Eye Contact: good eye contact Speech: normal rate/rhythm/volume of speech Discharge Data Consultations 01/03/22 15:26 Consult Hospitalist Routine Procedures Performed Operation Date: 01/03/22 10:05 Actual Procedures p L3-S1 Decompression and Fusion, Spinal Cord Monitoring(Not Applicable) - Otilio Baird DO Hospital Course (1) Neurogenic claudication due to lumbar spinal stenosis: sonia is being discharged home on postoperative day 2 status post L3-S1 decompression fusion. He has had an uneventful hospital course. He is made great progress in physical therapy. Pain is controlled. Passing flatus. Discharge Instructions ACTIVITY RECOMMENDATIONS: SELF CARE INSTRUCTIONS AFTER THORACIC/LUMBAR FUSIONS 1. You may walk to your tolerance. It is good exercise for your legs and back. Expect some back and intermittent leg aches and pains. 2. You may perform "counter-top" level activities (make a sandwich, chetan with a project, etc.). 3. No bending or lifting of more than 10 pounds or back twisting of any nature (roll like a log when turning in bed). 4. You may ride in a car for 20-30 minutes at a time. No driving until after your first visit with your doctor. 5. Frequent changes of position and restricting sitting to 30 minutes at a time will help limit the amount of back spasms and stiffness you may experience. 6. You may discontinue the use of ambulatory aids (cane, crutches, etc.) once your strength and confidence allow. 7. You may turkish line attendant the shower and let water strike your incision when you arrive home at least once daily. Do not take a tub bath, sit in a hot tub or go into a swimming pool until after your first recheck in the office. SPECIAL CARE INSTRUCTIONS: VERY IMPORTANT TO READ AND REVIEW A. Your surgical incision has been closed with a cosmetic suture under the skin that will dissolve in about 6 weeks. In 14 days, you can use a pair of clean scissors and cut the suture that is left outside of the skin at the ends of your incision. 1. The small skin tapes can be removed 7 days after surgery if they have not fallen off by that point. 2. You may keep the wound open to air as much as possible to promote healing after post-op day number 5 unless told otherwise by your doctor. 3. If you think the wound looks like it is becoming infected (redness or worsening drainage) and/or you are experiencing fever, chill or worsening back pain and muscle spasms, contact the office so that we may evaluate you as soon as possible. B. Complications are uncommon, but please contact us if you have any signs or symptoms of: 1. wound infection (fever higher than 102.5 degrees F, redness, separation of wound, drainage, or increasing pain from the incision) 2. blood clots in legs (pain, swelling, redness and warmth in legs) 3. urinary tract infection (fever higher than 102.5 degrees F, burning upon urination or increased frequency of urination) 4. nerve problems (inability to walk on your toes or heels, numbness, loss of bowel or bladder control) 5. any other symptoms that concern you C. Please call the office at if you have any concerns or questions about your operation or recovery. D. No smoking! Smoking drastically decreases the chance of a solid fusion. E. Do not take any anti-inflammatory medications (Indocin, Advil, Motrin, Aspirin, Naprosyn, etc.) as these may inhibit the chance of a solid fusion. Tylenol is okay to take for pain. MANAGING PAIN AFTER SPINAL SURGERY 1. Narcotic medication is intended for short-term use and will be provided for surgical pain. Surgical pain usually lasts for a period of 4-6 weeks. Narcotic medication includes Percocet, Vicodin, Darvocet, Tylenol #3 or Lortab. 2. Longer-term pain is more appropriately treated with non-narcotic medication such as Tylenol ES. 3. Muscle spasm is not appropriately treated with narcotics. Muscle relaxers such as Soma, Flexeril or Skelaxin can be used along with Tylenol ES. 4. Remember that we all live with some "aches and pains". This is not unusual or uncommon after an injury or as we get older. a. Back pain is expected and may include muscle spasms for 4 to 6 weeks after surgery. The pain should gradually improve. If the pain worsens for no apparent reason, please contact the office. b. Intermittent leg pain may also be experienced and should not be concerned about unless it worsens for no apparent reason. If so, please contact the office. 5. We will provide appropriate medication within the normal guidelines of their prescribed use. We will also be very cautious and aware of potential abuse and extended duration of patients' medication needs. a. Pain medications are for your comfort and to assist with sleep and rest so that the tissue can heal. They are not provided in order to return to normal activity and should not be used through the day. To do so or worsening pain at night can result from ongoing tissue damage and de velopment of tolerance to the prescribed medicine. 6. Please allow 2-3 days to process refills. Prescriptions will not be mailed but must be picked up at the office. FOLLOW UP VISIT: Keep your scheduled follow-up appointment. Any questions, please call the office at .
--- NOTE | 2022-01-05 11:44 | Hospitalist Progress Note ---
Date of Service January 05, 2022 Assessment & Plan (1) Neurogenic claudication due to lumbar spinal stenosis: (2) S/P spinal surgery: Plan: Post op day#2 S/P L3-S1 decompression and fusion by Dr Baird EBL#1000ml -pain management per ortho -wound management per ortho -PT/OT as appropriate -DVT prophylaxis per ortho -incentive spirometry -monitor H&H for acute blood loss anemia; pre-op Hgb: 12.8 (3) Anemia: Plan: Acute blood loss anemia, post-op Pre-op Hgb: 12.8 Had EBL#1000ml -Repeat H&H: Hgb: 9.1 -Monitor H&H, Type and cross PRBC's and hold (4) Hypertension: Plan: Losartan held post operatively. Restarted this yesterday and BP is at goal. (5) Hyperlipidemia: Plan: -Continue pravastatin, ezetimibe (6) BPH (benign prostatic hyperplasia): Plan: -Continue finasteride (7) GERD (gastroesophageal reflux disease): Plan: -Continue PPI DVT Prophylaxis -SCDs Disposition per primary service but cleared from a medical standpoint for discharge. Follows with Matthew Walker PA-C for routine care Thank you for this consultation. We will follow the patient with you during their hospital stay. You can reach a member of the [facility] Hospitalist Team 13/10 via [employer] Jacqueline [facility]amez [facility] and Anticipated Discharge Date Admission Date: January 03, 2022 Subjective 71-year-old man status post L3-S1 decompression and fusion by Dr. Baird on He is ambulating with walker and doing well with this. No pain, doing well. Reports he is going home today and no issues reported. Drain still in place but he expects this to be removed prior to departure. Review of Systems Review of Systems: All systems reviewed negative except as indicated above. Physical Exam Physical Exam: CONSTITUTIONAL: WNWD, vitals as above, generally well- appearing, NAD EYES: normal conjunctivae, no scleral icterus ENT: external ear and nose normal, MMM NECK: trachea midline RESPIRATORY: clear to auscultation bilaterally, no crackles, rales or wheezes, normal respiratory effort CARDIOVASCULAR: regular rate and rhythm, S1 and 2 heard without murmurs, gallops or rubs, no JVD, no peripheral edema CHEST: inspection of chest was normal GASTROINTESTINAL: soft, nontender, ND, no guarding MUSCULOSKELETAL: strength 5/5 throughout, head is normocephalic and atraumatic, neck supple, normal palpation of chest wall without tenderness SKIN: warm and dry NEUROLOGIC: CN 2-12 grossly intact, no sensory deficit, normal cognition, normal speech, no tremor PSYCHIATRIC: alert cooperative and oriented to person, place and time. Euthymic mood, makes good eye contact, language grossly intact, recent and remote memory grossly intact. Results & Data Results & Data ([facility]) Vital Signs (Past 12 Hours) Vital Signs Temp Pulse Resp BP Pulse Ox O2 Del Method 01/05/22 08:00 36.8 C 63 14 120/63 96 01/05/22 07:07 37.4 C 72 16 114/66 94 Room Air 01/05/22 06:22 37.4 C 74 18 129/74 94 Room Air Medications Administered Current Inpatient Medications Acetaminophen (Acetaminophen 500 Mg Tab) 1,000 mg PO Q8H PRN PRN Reason: MILD Pain Scale 1,2,3 & Pre PT Stop: 02/02/22 15:25 Al Hydrox/Mg Hydrox/Simethicone (Aluminum/Magnesium Susp 30 Ml Udc) 30 ml PO Q6H PRN PRN Reason: Dyspepsia Stop: 02/02/22 15:25 Bisacodyl (Bisacodyl 10 Mg Supp) 10 mg [place] DAILY PRN PRN Reason: Constipation Stop: 02/02/22 15:25 Diphenhydramine HCl (Diphenhydramine Capsule 25 Mg Cap) 25 mg PO Q6H PRN PRN Reason: Allergic Rhinitis/Insomnia Stop: 02/02/22 15:25 Ezetimibe (Ezetimibe 10 Mg Tablet) 10 mg PO QPM WADE Stop: 02/02/22 20:59 Last Admin: 01/04/22 20:30 Dose: 10 mg Famotidine (Famotidine 20 Mg Tab) 20 mg PO Q12H PRN PRN Reason: Dyspepsia Stop: 02/02/22 15:25 Finasteride (Finasteride 5 Mg Tab) 5 mg PO QPM WADE Stop: 02/02/22 20:59 Last Admin: 01/04/22 20:30 Dose: 5 mg Hydromorphone HCl (Hydromorphone Inj 0.5 Mg/0.5 Ml Syr) 0.5 mg IV Q3H PRN PRN Reason: MODERATE Pain (Scale 4,5,6) & Pre PT Stop: 01/17/22 15:25 Hydromorphone HCl (Hydromorphone Inj 1 Mg/Ml Syringe) 1 mg IV Q3H PRN PRN Reason: SEVERE Pain (Scale 7,8,9,10) Stop: 01/17/22 15:25 Hydroxyzine HCl (Hydroxyzine Hcl 25 Mg Tab) 25 mg PO Q8H PRN PRN Reason: Anxiety Stop: 02/02/22 15:25 Promethazine HCl 12.5 mg/ (Sodium Chloride) 50.5 mls @ 202 mls/hr IV Q6H PRN PRN Reason: Nausea &/or Vomiting Stop: 02/02/22 15:25 Lorazepam 0.5 mg/ Syringe 0.5 mls @ 2 mls/min IV Q8H PRN PRN Reason: Sedation/Anxiety Stop: 02/02/22 15:25 Dexamethasone 6 mg/ Syringe 1.5 mls @ 1 mls/min IV DAILY WADE Stop: 01/06/22 09:02 Last Admin: 01/05/22 08:05 Dose: 1 mls/min Lorazepam (Lorazepam 0.5 Mg Tab) 0.5 mg PO Q8H PRN PRN Reason: Sedation/Anxiety Stop: 02/02/22 15:25 Losartan Potassium (Losartan Potassium 50 Mg Tab) 50 mg PO QAM WADE Stop: 02/03/22 13:04 Last Admin: 01/05/22 08:05 Dose: 50 mg Magnesium Hydroxide (Magnesium Hydroxide Susp 30 Ml Udc) 30 ml PO Q24H PRN PRN Reason: Constipation Stop: 02/02/22 15:25 Last Admin: 01/04/22 19:19 Dose: 30 ml Metoclopramide HCl (Metoclopramide Hcl Inj 5 Mg/Ml 2 Ml Vial) 10 mg IV Q6H PRN PRN Reason: Nausea &/or Vomiting Stop: 02/02/22 15:25 Multivitamins (Multivitamin Tab) 1 tab PO QAM WADE Stop: 02/03/22 08:59 Last Admin: 01/05/22 08:05 Dose: 1 tab Naloxone HCl (Naloxone Hcl 0.4 Mg/1 Ml Vial/Carp) 0.1 mg IV Q5M PRN PRN Reason: Oversedation/Resp depression Stop: 02/02/22 15:25 Ondansetron HCl (Ondansetron Inj 2 Mg/Ml 2 Ml Vial) 4 mg IV Q6H PRN PRN Reason: Nausea &/or Vomiting Stop: 02/02/22 15:25 Ondansetron HCl (Ondansetron 4 Mg Od Tab) 4 mg PO Q6H PRN PRN Reason: Nausea Stop: 02/02/22 15:25 Oxycodone HCl (Oxycodone Hcl Ir 5 Mg Tab (Immediate Release)) 5 - 10 mg PO Q4H PRN PRN Reason: Pain & Pre PT Stop: 01/17/22 15:25 Pantoprazole Sodium (Pantoprazole 40 Mg Tab) 40 mg PO QPM WADE Stop: 02/02/22 20:59 Last Admin: 01/04/22 20:30 Dose: 40 mg Polyethylene Glycol (Polyethylene (Miralax) 17 Gm Pack) 17 gm PO Q6 WADE Stop: 02/03/22 05:59 Last Admin: 01/05/22 05:54 Dose: 17 gm Pravastatin Sodium (Pravastatin Sod 40 Mg Tab) 40 mg PO HS WADE Stop: 02/02/22 20:59 Last Admin: 01/04/22 20:30 Dose: 40 mg Senna/Docusate Sodium (Docusate Sodium/Senna 50/8.6mg Tab) 2 tab PO HS WADE Stop: 02/02/22 20:59 Last Admin: 01/04/22 19:19 Dose: 2 tab Sodium Biphosphate/Sodium Phosphate (Sod Phosphate/Sod Biphosphate Enema 132 Ml Btl) 132 ml [place] ONE PRN PRN Reason: Constipation Stop: 02/02/22 15:25 Tramadol HCl (Tramadol Hcl 50 Mg Tablet) 50 - 100 mg PO Q4H PRN PRN Reason: Moderate-Severe pain & Pre PT Stop: 02/02/22 15:25 Vitamin D (Cholecalciferol 1,000 Units 25 Mcg Tab) 1,000 units PO QAM WADE Stop: 02/03/22 08:59 Last Admin: 01/05/22 08:05 Dose: 1,000 units
== END 2022-01-05 11:53 | disposition home or self-care (01) | DRG 454 ==
LOC: ASU 08:21 → 3N 13:27